=== PATIENT | male | born 1965 | race Caucasian/White ===

== ENCOUNTER 2017-10-01 15:20 | Emergency (ER) | payer BC, OTHER ==
[2017-10-01 15:34] VITALS: BP 151/108
[2017-10-01] MEDS ORDERED: Acetaminophen/oxyCODONE 325-5 MG Tab PO ONE (15:49)
--- NOTE | 2017-10-01 16:04 | EDM.PDOC ---
ED HPI GENERAL MEDICAL PROBLEM - General Chief Complaint: Upper Extremity Injury/Pain Stated Complaint: INJURED L ARM Time Seen by Provider: 10/01/17 15:34 Source of Information: Reports: Patient History Limitations: Reports: No Limitations - History of Present Illness INITIAL COMMENTS - FREE TEXT/NARRATIVE: The patient presents with left lateral neck, left shoulder and left arm pain. The patient was in his camper and he had a heater that he tripped over and fell into the toilet and sink. His left arm went into the toilet when he fell. He hit his head but he has no headache. He has pain to the left side of his neck all the way down his left arm. He had no LOC. He has no numbness in his arm. It just hurts to move it. He has no other pain such as chest or abdominal pain. He has no pain in his legs. Onset: Sudden Duration: Minutes: Location: Reports: Neck, Upper Extremity, Left Quality: Reports: Sharp Severity: Severe Improves with: Reports: Immobilization Worsens with: Reports: Movement Context: Reports: Trauma (He tripped and fell) Associated Symptoms: Reports: No Other Symptoms Left Arm Pain Score (Numeric/FACES): 10 - Related Data Allergies Allergy/AdvReac Type Severity Reaction Status Date / Time No Known Allergies Allergy Verified 05/19/14 21:13 Home Meds: Home Meds oxyCODONE HCl/Acetaminophen [Percocet 5-325 mg Tablet] 1 - 2 each PO Q6HR PRN # 20 tablet 10/01/17 [Rx] Past Medical History - Past Health History Medical/Surgical History: Denies Medical/Surgical History Social & Family History - Tobacco Use Smoking Status *Q: Current Every Day Smoker Years of Tobacco use: 40 Packs/Tins Daily: 1 - Caffeine Use Caffeine Use: Reports: Coffee, Tea - Alcohol Use Days Per Week of Alcohol Use: 2 Number of Drinks Per Day: 6 Total Drinks Per Week: 12 - Recreational Drug Use Recreational Drug Use: No Review of Systems - Review of Systems Review Of Systems: See Below Constitutional: Reports: No Symptoms Eyes: Reports: No Symptoms Ears: Reports: No Symptoms Nose: Reports: No Symptoms Mouth/Throat: Reports: No Symptoms Respiratory: Reports: No Symptoms Cardiovascular: Reports: No Symptoms GI/Abdominal: Reports: No Symptoms Musculoskeletal: Reports: Neck Pain (Left lateral pain), Shoulder Pain (Left), Arm Pain (Forearm and wrist) ED EXAM, GENERAL - Physical Exam Exam: See Below Exam Limited By: No Limitations General Appearance: Alert, No Apparent Distress Ears: Normal External Exam Nose: Normal Inspection Head: Atraumatic, Normocephalic Neck: Tender Lateral (left side) Respiratory/Chest: No Respiratory Distress, Lungs Clear, Normal Breath Sounds Cardiovascular: Regular Rate, Rhythm, No Edema, No Murmur GI/Abdominal: Soft, Non-Tender, No Organomegaly, No Mass Back Exam: Normal Inspection Extremities: Other (Pain upon palpation to the left posterior shoulder. Pain upon palpation to the left forearm. Good sensation and pulses distally. He cannot raise his shoulder due to pain.) Course - Vital Signs Last Recorded V/S: Last Vital Signs Temp 97.8 F 10/01/17 15:33 Pulse 99 10/01/17 15:33 Resp 20 10/01/17 15:33 BP 151/108 H 10/01/17 15:33 Pulse Ox 98 10/01/17 15:33 - Orders/Labs/Meds Orders: Active Orders 24 hr Category Date Time Status Cervical Spine 2V or 3V [CR] Stat Exams 10/01/17 15:47 Taken Forearm 2V Lt [CR] Stat Exams 10/01/17 15:48 Taken Shoulder Comp Lt [CR] Stat Exams 10/01/17 15:48 Taken Meds: Medications Discontinued Medications Generic Name Dose Route Start Last Admin Trade Name Freq PRN Reason Stop Dose Admin Oxycodone/Acetaminophen 2 tab 10/01/17 15:49 10/01/17 16:04 Percocet 325-5 Mg PO 10/01/17 15:50 2 tab ONETIME ONE Administration - Re-Assessments/Exams Free Text/Narrative Re-Assessment/Exam: 10/01/17 16:04 I ordered 2 percocet and x-rays of his neck, shoulder and left forearm. 10/01/17 16:20 His x-rays look good. There is just some degenerative changes in his neck. I will get him a sling and percocet for pain. I will have him follow up with Dr Guzman. I am worried he may have a rotator cuff injury. Departure - Departure Time of Disposition: 16:25 Disposition: Home, Self-Care 01 Condition: Good Clinical Impression: Fall Qualifiers: Encounter type: initial encounter Qualified Code(s): W19.XXXA - Unspecified fall, initial encounter Sprain of left shoulder Qualifiers: Encounter type: initial encounter Shoulder sprain type: unspecified sprain Qualified Code(s): S43.402A - Unspecified sprain of left shoulder joint, initial encounter - Discharge Information Prescriptions: oxyCODONE HCl/Acetaminophen [Percocet 5-325 mg Tablet] 1 - 2 each PO Q6HR PRN # 20 tablet PRN Reason: Pain Referrals: PCP,None [Primary Care Provider] - Renzo Guzman MD [Physician] - 1 Week Forms: ED Department Discharge Additional Instructions: Ice your shoulder for 15 minutes every other hour while awake for 2 days. Wear the sling for comfort but take it off 3 to 4 times a day and move your shoulder to avoid frozen shoulder. Take ibuprofen or aleve for pain and you may also take some percocet for pain. Follow up with Dr Blandon in the next 1 to 2 weeks. Please return if you are worse. - My Orders Last 24 Hours: My Active Orders 10/01/17 15:47 Cervical Spine 2V or 3V [CR] Stat 10/01/17 15:48 Forearm 2V Lt [CR] Stat Shoulder Comp Lt [CR] Stat - Assessment/Plan Last 24 Hours: My Active Orders 10/01/17 15:47 Cervical Spine 2V or 3V [CR] Stat 10/01/17 15:48 Forearm 2V Lt [CR] Stat Shoulder Comp Lt [CR] Stat
--- NOTE | 2017-10-02 08:42 | CR ---
Cervical spine: AP, lateral and odontoid views of the cervical spine were obtained. Comparison: Prior MRI cervical spine study of 06/07/16 and plain film cervical spine exam of 05/31/16. Disc space narrowing is noted at C3-C4 and C4-C5. More severe disc space narrowing at C5-C6 and C6-C7. Anterior osteophytes are seen throughout the same levels. Slight posterior spurring is noted at C6-C7 and minimal spurring at C5-C6. No abnormal subluxation or fracture is seen. Prevertebral soft tissues are within normal limits. Impression: 1. Diffuse degenerative change. Findings are fairly stable from prior studies. 2. Nothing acute is appreciated. Diagnostic code #2
--- NOTE | 2017-10-02 08:42 | CR ---
Left forearm: Two views of the left forearm were obtained. Comparison: No prior forearm study. No fracture or other bony abnormality is identified. Impression: 1. No abnormality is identified on two-view left forearm study. Diagnostic code #1
--- NOTE | 2017-10-02 08:42 | CR ---
Left shoulder: Three views of the left shoulder were obtained. Comparison: Prior left shoulder study of 05/31/16. Mild inferior spurring is noted within the acromioclavicular joint. Glenohumeral joint is within normal limits. No acute fracture or dislocation is seen. Impression: 1. Inferior spurring off the acromioclavicular joint. 2. Left shoulder study is otherwise unremarkable. Note: Findings are fairly stable from previous exam.
== END 2017-10-01 16:43 | disposition home or self-care (01) ==
LOC: JD.ED 15:20
DX: S43.402A Unspecified sprain of left shoulder joint, initial encounter (principal); F17.210 Nicotine dependence, cigarettes, uncomplicated; W01.0XXA Fall on same level from slipping, tripping and stumbling without subsequent striking against object, initial encounter; Y92.89 Other specified places as the place of occurrence of the external cause
CPT/HCPCS: 72040; 73030; 73090; 99283; A9270

== ENCOUNTER 2017-12-13 09:44 | Day surgery (SDC) | payer BC ==
[~2017-12-13 09:44] MED LIST: Sodium Chloride 0.9% 10 ML Syringe FLUSH PRN
[2017-12-13] MEDS: Lidocaine 1%/Sod Bicarbonate in NS 8.4% 1 ML Syringe IDERM PRN (10:44)
[2017-12-13] MEDS: Lactated Ringers 1,000 ML IV SCH (10:45)
[2017-12-13] MEDS ORDERED: Ondansetron 4 MG/2 ML SDV ONE (10:52)
[2017-12-13] MEDS ORDERED: Lidocaine 1% 4 ML ONE (10:52)
[2017-12-13] MEDS ORDERED: Rocuronium 50 MG/5 ML Vial ONE (10:52)
[2017-12-13] MEDS ORDERED: Midazolam 1 MG/ML 2 ML SDV ONE (10:52)
[2017-12-13] MEDS ORDERED: Propofol 200 MG/20 ML SDV ONE (10:52)
[2017-12-13] MEDS ORDERED: fentaNYL 250 MCG/5 ML SDV ONE (10:52)
[2017-12-13] MEDS ORDERED: ceFAZolin 1 GM Vial ONE (10:53)
[2017-12-13] MEDS ORDERED: Dexamethasone 4 MG/ML 5 ML MDV ONE (10:53)
--- NOTE | 2017-12-13 10:54 | PCM.PREANE ---
Preanesthetic Assessment - Procedure Proposed Procedure: lap choley - Anesthesia/Transfusion/Family Hx Anesthesia History: Prior Anesthesia Without Reaction Family History of Anesthesia Reaction: No Transfusion History: No Prior Transfusion(s) - Review of Systems General: No Symptoms, Other (hot flashes) Pulmonary: Other (from pressure in stomacjh) Cardiovascular: No Symptoms Gastrointestinal: Abdominal Pain Neurological: No Symptoms Other: Reports: None, Neck Pain (degen disk disorder) - Physical Assessment NPO Status Date: 12/12/17 NPO Status Time: 18:30 Pulse: 79 O2 Sat by Pulse Oximetry: 96 Respiratory Rate: 20 Blood Pressure: 153/103 Temperature: 97.8 F Height: 5 ft 11 in Weight: 95 kg ASA Class: 2 Mental Status: Alert & Oriented x3 Airway Class: Mallampati = 1 Dentition: Reports: Normal Dentition (caps) Thyro-Mental Finger Breadths: 3 Mouth Opening Finger Breadths: 3 ROM/Head Extension: Full Lungs: Clear to Auscultation, Normal Respiratory Effort Cardiovascular: Regular Rate, Regular Rhythm - Allergies Allergies/Adverse Reactions: Allergies Allergy/AdvReac Type Severity Reaction Status Date / Time No Known Allergies Allergy Verified 12/12/17 14:10 - Blood Blood Available: No - Acknowledgements Anesthesia Type Planned: General Anesthesia Pt an Appropriate Candidate for the Planned Anesthesia: Yes Alternatives and Risks of Anesthesia Discussed w Pt/Guardian: Yes Pt/Guardian Understands and Agrees with Anesthesia Plan: Yes PreAnesthesia Questionnaire - Past Health History Medical/Surgical History: Denies Medical/Surgical History HEENT History: Reports: Sinusitis Respiratory History: Reports: Other (See Below) (smoker-) Gastrointestinal History: Reports: GERD Other Gastrointestinal History: abdominal pains, epigastritic pain, elevated liver function test, gallbladder disease Other Genitourinary History: genital herpes, vastectomy Musculoskeletal History: Reports: Arthritis Other Musculoskeletal History: ac joint spurs, left shoulder pain Other Neuro History: cervical radiculopathy due to trauma, cervicalgia, migraines Psychiatric History: Reports: Anxiety Other Dermatologic History: seborrheic keratosis - Past Surgical History HEENT Surgical History: Reports: Tonsillectomy GI Surgical History: Reports: Appendectomy, Colonoscopy Male Surgical History: Reports: Vasectomy - SUBSTANCE USE Smoking Status *Q: Current Every Day Smoker Tobacco Use Within Last Twelve Months: Cigarettes Second Hand Smoke Exposure: Yes Days Per Week of Alcohol Use: 1 Number of Drinks Per Day: 5 Total Drinks Per Week: 5 Recreational Drug Use History: No - HOME MEDS Home Medications: Home Meds oxyCODONE HCl/Acetaminophen [Percocet 5-325 mg Tablet] 1 - 2 each PO Q6HR PRN # 20 tablet 10/01/17 [Rx] Diclofenac Sodium [Voltaren] 1 tab PO BID 12/12/17 [History] Omeprazole 20 mg PO DAILY 12/12/17 [History] valACYclovir HCl [valACYclovir] 500 mg PO BID PRN 12/12/17 [History] - CURRENT (IN HOUSE) MEDS Current Meds: Current Medications Lactated Ringer's (Ringers, Lactated) 1,000 mls @ 125 mls/hr IV ASDIRECTED JAMES Stop: 12/13/17 23:00 Lidocaine/Sodium Bicarbonate (Buffered Lidocaine 1% In Ns 8.4%) 0.25 ml IDERM ONETIME PRN PRN Reason: Prior to IV Start Stop: 12/13/17 18:00 Sodium Chloride (Saline Flush) 10 ml FLUSH ASDIRECTED PRN PRN Reason: Keep Vein Open Stop: 12/13/17 18:00 Discontinued Medications Bupivacaine HCl/Epinephrine Bitart (Marcaine 0.5%/Epinephrine 1:200,000) Confirm Administered Dose 50 ml .ROUTE .STK-MED ONE Stop: 12/13/17 10:33 Cefazolin Sodium (Ancef) Confirm Administered Dose 2 gm .ROUTE .STK-MED ONE Stop: 12/13/17 10:54 Dexamethasone (Dexamethasone) Confirm Administered Dose 20 mg .ROUTE .STK-MED ONE Stop: 12/13/17 10:54 Fentanyl (Sublimaze) Confirm Administered Dose 250 mcg .ROUTE .STK-MED ONE Stop: 12/13/17 10:53 Lidocaine HCl (Xylocaine-Mpf 1%) Confirm Administered Dose 4 mls @ as directed .ROUTE .STK-MED ONE Stop: 12/13/17 10:53 Lidocaine/Epinephrine (Xylocaine 1% With Epinephrine 1:100,000) Confirm Administered Dose 20 ml .ROUTE .STK-MED ONE Stop: 12/13/17 10:33 Midazolam HCl (Versed 1 Mg/Ml) Confirm Administered Dose 2 mg .ROUTE .STK-MED ONE Stop: 12/13/17 10:53 Ondansetron HCl (Zofran) Confirm Administered Dose 4 mg .ROUTE .STK-MED ONE Stop: 12/13/17 10:53 Propofol (Diprivan 20 Ml) Confirm Administered Dose 200 mg .ROUTE .STK-MED ONE Stop: 12/13/17 10:53 Rocuronium [place] (Zemuron) Confirm Administered Dose 50 mg .ROUTE .STK-MED ONE Stop: 12/13/17 10:53
[2017-12-13] MEDS: Albuterol 0.083% 2.5 MG/3 ML Neb Soln NEB ONE (11:09)
[2017-12-13] MEDS: Albuterol 0.083% 2.5 MG/3 ML Neb Soln ONE (11:09)
[2017-12-13] MEDS: Bupivacaine 0.5%/EPINEPHrine 1:200,000 50 ML MDV ONE (11:35)
[2017-12-13] MEDS: Lidocaine 1% with EPINEPHrine 1:100,000 20 ML MDV ONE (11:35)
[2017-12-13] MEDS ORDERED: HYDROmorphone 0.5 MG/0.5 ML Syringe ONE ×2 (11:55)
[2017-12-13] MEDS ORDERED: Lactated Ringers 1,000 ML ONE (12:18)
[2017-12-13] MEDS ORDERED: Glycopyrrolate 0.2 MG/ML SDV ONE (12:34)
[2017-12-13] MEDS ORDERED: Neostigmine Methylsulfate 10 MG/10 ML MDV ONE (12:34)
--- NOTE | 2017-12-13 12:34 | PCM.OPNOTE ---
- General Post-Op/Procedure Note Date of Surgery/Procedure: 12/13/17 Operative Procedure(s): Laparoscopic cholecystectomy Findings: Multiple adhesions surrounding the gallbladder and the surrounding omentum. The gallbladder itself had mild chronic inflammatory changes. There were no stones within the lumen of the gallbladder. Pre Op Diagnosis: Biliary colic with dyspepsia Post-Op Diagnosis: Chronic cholecystitis Anesthesia Technique: General ET Tube, Local Primary Surgeon: Jose Souza Pathology: Gallbladder with contents EBL in mLs: 6 Complications: None Condition: Good Free Text/Narrative:: After adequate general endotracheal tube anesthesia was obtained the patient's abdomen was prepped and draped in the usual fashion for a laparoscopic cholecystectomy. Local analgesia was given above the umbilicus followed by an incision with 15 blade down to the midline. The midline was opened sharply followed by cannulation with a 12 mm camera port. CO2 pneumoperitoneum was obtained slowly. 3--5 mm working ports were placed along the right costal margin. I grasped the dome of the gallbladder and retracted it and the liver in a cephalad direction. Adhesions between the greater omentum in the body of the gallbladder were taken down with the hook cautery. I then grasped Thomas's pouch and then dissected out the cystic duct and cystic artery. There was a posterior branch that was bleeding from the cystic artery which was clipped for control. I then clipped the cystic duct and anterior branch of the cystic artery in continuity with 5 mm clips. These structures were then divided sharply with Endo [place]. The gallbladder was taken down from its bed in a retrograde fashion with the hook cautery. It was placed in a bag and removed through the umbilicus. I irrigated out the small bile leakage from the gallbladder wall and the several cc of blood from the gallbladder bed. The area was then hemostatic and bile static with no obvious bowel injury. I then decannulated the abdomen under direct vision. CO2 pneumoperitoneum was completely released and I closed the umbilical site with a [id number] 0 Vicryl suture. The skin was closed with Vicryl and the subcutaneous tissues were closed with Vicryl as well. Additional local was given before this. Photographs were taken for the patient and for the medical record. There were no known procedural complications.
[2017-12-13] MEDS ORDERED: Meperidine PF 50 MG/ML Syringe IVPUSH PRN (12:53)
[2017-12-13] MEDS ORDERED: diphenhydrAMINE 50 MG/ML SDV IVPUSH PRN (12:53)
--- NOTE | 2017-12-13 12:53 | PCM.POSTAN ---
POST ANESTHESIA ASSESSMENT - MENTAL STATUS Mental Status: Alert, Oriented - VITAL SIGNS Pulse Rate: 101 SaO2: 95 Resp Rate: 14 Blood Pressure: 159/101 Temperature: 36.6 C - RESPIRATORY Respiratory Status: Respiratory Rate WNL, Airway Patent, O2 Saturation Stable, Supplemental Oxygen - CARDIOVASCULAR CV Status: Pulse Rate WNL, Blood Pressure Stable - GASTROINTESTINAL GI Status: No Symptoms - PAIN Pain Score: 0 - POST OP HYDRATION Hydration Status: Adequate & Stable
[2017-12-13] MEDS ORDERED: Ondansetron 4 MG/2 ML SDV IVPUSH PRN (12:59)
[2017-12-13] MEDS ORDERED: Albuterol 6.7 GM Inhaler INH ONE (13:01)
[2017-12-13] MEDS: HYDROmorphone 0.5 MG/0.5 ML Syringe IVPUSH ONE (13:09)
[2017-12-13] MEDS: fentaNYL 100 MCG/2 ML SDV IVPUSH PRN (13:12)
[2017-12-13 15:25] VITALS: BP 126/81
== END 2017-12-13 15:33 | disposition home or self-care (01) ==
LOC: JD.SDS 09:44
PROVIDERS: ATTEND Surgery
DX: K81.1 Chronic cholecystitis (principal); K82.8 Other specified diseases of gallbladder; F41.9 Anxiety disorder, unspecified; Z79.899 Other long term (current) drug therapy; F17.210 Nicotine dependence, cigarettes, uncomplicated
CPT/HCPCS: 47562; 94640; A9270; J0690; J1100; J1170; J2250; J2405; J2710; J3010; J3490; J7120; J2704

== ENCOUNTER 2024-01-10 11:02 | Emergency (ER) | payer OTHER, BC ==
[2024-01-10] MEDS ORDERED: fentaNYL 100 MCG/2 ML SDV ONE (11:11)
[2024-01-10] MEDS ORDERED: Iopamidol 612 MG/ML 100 ML Bottle IVPUSH ONE (11:15)
[2024-01-10] MEDS ORDERED: Iopamidol 612 MG/ML 30 ML SDV IVPUSH ONE (11:15)
[2024-01-10] MEDS ORDERED: Sodium Chloride 0.9% 10 ML Syringe IARTIC ONE (11:15)
[2024-01-10] MEDS: fentaNYL 100 MCG/2 ML SDV IVPUSH ONE ×2 (11:15→12:31)
[2024-01-10 11:55] LABS: HEMATOCRIT 39.1 % (42.0-52.0); HEMOGLOBIN 12.9 gm/dl (14.0-18.0); MEAN CORPUSCULAR HEMOGLOBIN 27.5 pg (28.0-32.0); MEAN CORPUSCULAR VOLUME 83.4 fl (83.0-99.0); MEAN PLATELET VOLUME 10.5 fl (9.4-12.4); RED BLOOD CELL COUNT 4.69 M/mm3 (4.52-5.90); WHITE BLOOD CELL COUNT,WBC 9.89 K/mm3 (3.9-11.3)
[2024-01-10 11:57] LABS: PLATELET COUNT,PLT 279 K/mm3 (150-400)
[2024-01-10 12:03] LABS: INR 0.97; PROTHROMBIN TIME 10.4 SECONDS (9.7-12.0)
[2024-01-10 12:09] LABS: A/G RATIO 1.2 (1-2); ALANINE AMINOTRANSFERASE,ALT 30 U/L (16-63); ALBUMIN 3.8 g/dl (3.4-5.0); ALKALINE PHOSPHATASE 143 U/L (46-116); AMYLASE 68 U/L (25-115); ANION GAP 18.8 (5-15); ASPARTATE AMNIOTRANSFERASE,AST 22 U/L (15-37); BILIRUBIN TOTAL 0.3 mg/dL (0.2-1.0); BLOOD UREA NITROGEN,BUN 28 mg/dL (7-18); BUN/CREATININE RATIO 13.3 (14-18); CALCIUM 8.6 mg/dL (8.5-10.1); CARBON DIOXIDE,CO2 18 mEq/L (21-32); CHLORIDE,CL 106 mEq/L (98-107); CREATININE 2.1 mg/dL (0.7-1.3); ESTIMATED GFR 35 mL/min (>60); GLUCOSE RANDOM 106 mg/dL (70-99); POTASSIUM,K 3.8 mEq/L (3.5-5.1); PROTEIN TOTAL,TP 7.1 g/dl (6.4-8.2); SODIUM,NA 139 mEq/L (136-145)
[2024-01-10 12:30] LABS: BAND PERCENT MAN 0 % (0-10); BASOPHILS PERCENT MAN 0 (0.2-1.2); EOSINOPHILS PERCENT MAN 5 % (0.8-7.0); LYMPHOCYTES % ATYPICAL MANUAL 1 %; LYMPHOCYTES PERCENT MAN 15 % (20-40); MONOCYTES PERCENT MAN 7 % (2-10)
[2024-01-10 12:31] LABS: PLATELET COUNT ESTIMATE ADEQUATE
[2024-01-10 13:30] LABS: APPEARANCE,URINE CLEAR (Clear); BILIRUBIN,URINE NEGATIVE (Negative); COLOR,URINE YELLOW (Yellow); GLUCOSE,URINE NEGATIVE (Negative); KETONES,URINE NEGATIVE (Negative); LEUKOCYTE ESTERASE,URINE NEGATIVE (Negative); NITRITE,URINE NEGATIVE (Negative); OCCULT BLOOD,URINE NEGATIVE (Negative); PROTEIN,URINE 1+ (Negative); UROBILINOGEN,URINE 0.2 (0.2-1.0)
[2024-01-10 13:42] LABS: BARBITURATE SCREEN,URINE NEGATIVE (CUTOFF=200); BENZODIAZEPINES SCREEN,URINE NEGATIVE (CUTOFF=150); BUPRENORPHINE SCREEN,URINE NEGATIVE (CUTOFF=10); METHADONE SCREEN, URINE NEGATIVE (CUT0FF=200); METHAMPHETAMINES SCREEN, URINE NEGATIVE (CUTOFF=500); OXYCODONE SCREEN,URINE NEGATIVE (CUT0FF=100); THC SCREEN,URINE 20 NG/ML NEGATIVE (CUTOFF=50)
[2024-01-10 13:45] LABS: AMPHETAMINES SCREEN, URINE NEGATIVE (CUTOFF=500)
[2024-01-10] MEDS: Sodium Chloride 0.9% 1,000 ML IV ONE (14:43)
[2024-01-10] MEDS: Morphine 4 MG/ML Syringe IVPUSH ONE (14:43)
[2024-01-10 19:04] VITALS: BP 130/84; PULSE 74
== END 2024-01-10 19:01 | disposition home or self-care (01) ==
LOC: JD.ED 11:02
DX: S02.2XXA Fracture of nasal bones, initial encounter for closed fracture (principal); N20.0 Calculus of kidney; I10 Essential (primary) hypertension; Z79.899 Other long term (current) drug therapy; Z86.19 Personal history of other infectious and parasitic diseases; Z86.16 Personal history of COVID-19; V59.00XA Driver of pick-up truck or van injured in collision with unspecified motor vehicles in nontraffic accident, initial encounter
CPT/HCPCS: 36415; 70450; 70450-26; 70486; 70486-26; 71045; 71045-26; 71250; 71250-26; 72125; 72125-26; 74176; 74176-26; 80053; 80306; 80307; 81003; 82150; 83605; 85007; 85027; 85610; 86850; 86900; 86901; 96361; 96374; 96375; 96376; 99284; 99284-25; J2270; J3010; J7030